=== PATIENT | male | born 1985 | race Caucasian/White ===

== ENCOUNTER 2022-01-05 14:02 | Emergency (ER) | payer SELFPAY ==
[~2022-01-05] VITALS: Ht 188 cm; Wt 90.7 kg
[2022-01-05] MEDS ORDERED: ALPR1TAB7 PO ×3 (15:10→15:42)
[2022-01-05] MEDS ORDERED: LORAZEPAM 1 MG TABLET ONE (15:11)
[2022-01-05] MEDS ORDERED: LORAZEPAM 0.5 MG TABLET PO ONE (15:15)
--- NOTE | 2022-01-05 15:16 | NUR ---
GAVE PT RX & D/C INSTRUCTIONS, AND ADVISED TO GO TO OLIVE VIEW, PT VERBALIZED UNDERSTANDING.
== END 2022-01-05 15:20 | disposition home or self-care (01) ==
LOC: ER 14:02
DX: F41.9 Anxiety disorder, unspecified (principal); Z76.0 Encounter for issue of repeat prescription; Z59.00 Homelessness unspecified; F19.10 Other psychoactive substance abuse, uncomplicated
CPT/HCPCS: A4663